=== PATIENT | male | born 1945 | race Caucasian/White ===

== ENCOUNTER 2018-07-11 10:00 | Emergency (ER) | payer OTHER ==
[2018-07-11 10:24] VITALS: BP 95/58; TEMP 96.8; BMI 23.0
--- NOTE | 2018-07-11 10:44 | ED.PDOC ---
General ED Provider: Dr. WAGNER GARCIAS Chief Complaint: Chest Wall Injury/Pain Stated Complaint: CC: Pain in Chest, Rt shoulder, Lt Shoulder, SOB. Lives alone and apparently fell last eveinig landing on Rt side injuring rt rib cage, shoulder (RT) Striking head sustaing superficial laceration mid forehead above rt Eyebrow. Unknown LOC. Found by caregiver to assisted from floor where he was found remotely from site of fall lying on Lt side attempitng to get. Time Seen by Physician: 10:20 Mode of Arrival: Ambulance Information Source: Patient, EMT Exam Limitations: No limitations Primary Care Provider: PATRICIA KIRKLAND Nursing and Triage Documentation Reviewed and Agree: Yes Does patient meet sepsis criteria?: No If yes, has appropriate treatment been initiated?: Yes System Inflammatory Response Syndrome: Not Applicable Sepsis Protocol: For patient's 13 years and over: Temp is 96.8 and below OR 101 and greater Pulse >90 BPM Resp >20/minute Acutely Altered Mental Status Are patient's symptoms suggestive of a new infection, such as: -Pneumonia -Skin, Soft Tissue -Endocarditis -UTI -Bone, Joint Infection -Implantable Device -Acute Abdominal Infection -Wound Infection -Meningitis -Blood Stream Catheter Infection -Unknown Trauma/Injury Complaint Exam - Truncal Trauma Complaint/Exam Location of Pain: Reports: Right, Chest Onset: Last PM Symptoms Are: Worse Onset of Pain: Reports: Immediate Initial Severity: Severe Current Severity: Moderate Mechanism: Reports: Blunt trauma, Direct blow Aggravating: Reports: Movement, Cough Alleviating: Reports: None Associated Signs and Symptoms: Reports: Short of air, Chest pain, Cough Related History: Reports: COPD Vertebral Tenderness Present: No Vertebral Deformity Present: No Trachial Deviation Present: No JVD Present: No Crepitus Present: No Diminished Breath Sounds: Yes Muffled Heart Sounds Present: No Paradoxical Chest Wall Movement Present: No Abdominal Guarding Present: No Abdominal Rigidity Present: No Referred Shoulder Pain (Kehr's Sign) Present: No Skin Findings: Present: Abrasion, Contusion, Hematoma, Laceration (superficial lt arm) Differential Diagnoses: Chest Wall Contusion, Pulmonary Contusion, Rib Fracture , Thoracic Sprain, Thoracic Strain, Lumbar Sprain, Lumbar Strain Review of Systems - Review Of Systems Constitutional: Reports: No symptoms Eyes: Reports: No symptoms Ears, Nose, Mouth, Throat: Reports: No symptoms Respiratory: Reports: Cough, Short of air, Wheezing Cardiac: Reports: No symptoms GI: Reports: No symptoms : Reports: No symptoms Musculoskeletal: Reports: Back pain, Joint pain, Muscle pain, Muscle stiffness, Neck pain Skin: Reports: No symptoms Neurological: Reports: No symptoms Endocrine: Reports: No symptoms Hematologic/Lymphatic: Reports: No symptoms All Other Systems: Reviewed and Negative Past Medical History - Past Medical History Previously Healthy: No Endocrine: Reports: DM 2 Cardiovascular: Reports: CAD, Hypertension Respiratory: Reports: COPD Hematological: Reports: None Gastrointestinal: Reports: None Genitourinary: Reports: None Neuro/Psych: Reports: None Musculoskeletal: Reports: Arthritis, Back Pain Cancer: Reports: None - Surgical History General Surgical History: Reports: CABG - Family History Family History: Reports: Unknown - Social History Smoking Status: Current every day smoker, Heavy tobacco smoker Hx Substance Use: No Alcohol Screening: Heavy - Immunizations Tetanus Shot up to Date: No (unknown) Physical Exam - Physical Exam Appearance: Ill-appearing Ill-appearing: Moderate Pain Distress: Severe Eyes: ECTOR, EOMI, Conjunctiva clear ENT: Ears normal, Nose normal, Oropharynx normal Neck: Supple Respiratory: Breath sounds diminished, Crackles, Rhonchi, Wheezes Cardiovascular: RRR GI/: Soft, Nontender, No masses, Bowel sounds normal Musculoskeletal: Normal strength, ROM intact, No edema, No calf tenderness Skin: Warm, Dry, Normal color Neurological: Sensation intact, Motor intact, Reflexes intact, Cranial nerves intact, Alert, Oriented Psychiatric: Affect appropriate Critical Care Note - Critical Care Note Total Time (mins): 60 Course - Course Hematology/Chemistry: 07/11/18 11:45 07/11/18 11:45 Orders, Labs, Meds: Lab Review 07/11/18 07/11/18 07/11/18 10:59 11:45 11:45 WBC 9.75 RBC 3.29 L Hgb 10.8 L Hct 30.8 L MCV 93.6 MCH 32.8 H MCHC 35.1 RDW Coeff of Levar 13.4 Plt Count 185 Immature Gran % (Auto) 0.4 Neut % (Auto) 78.6 Lymph % (Auto) 10.8 Luce % (Auto) 9.3 Eos % (Auto) 0.8 Baso % (Auto) 0.1 Immature Gran # (Auto) 0.0 Neut # (Auto) 7.7 H Lymph # (Auto) 1.1 Luce # (Auto) 0.9 Eos # (Auto) 0.1 Baso # (Auto) 0.0 Puncture Site Lrad O2 Saturation 92.0 L ABG pH 7.412 ABG pCO2 29.2 L ABG pO2 61.0 L ABG HCO3 18.6 L ABG Total CO2 20 L ABG Base Excess -6 L [place] Test + FiO2 % 21.0 Sodium 137.4 Potassium 4.19 Chloride 106.1 Carbon Dioxide 21.1 L Anion Gap 14.39 BUN 35.4 H Creatinine 1.24 H Estimated GFR (MDRD) 57.00 BUN/Creatinine Ratio 28.54 Glucose 157.1 H Calcium 8.78 Total Bilirubin 0.78 AST 26.2 ALT 26.1 Alkaline Phosphatase 79.6 Total Protein 6.53 Albumin 3.74 Globulin 2.79 Albumin/Globulin Ratio 1.34 Orders Category Date Time Status ABG DRAW REQUEST Stat CARDIO 07/11/18 10:59 Completed EKG-(ED ONLY) Stat CARDIO 07/11/18 11:03 Ordered ABG Stat LAB 07/11/18 10:59 Completed CBC W/ AUTO DIFF Stat LAB 07/11/18 11:45 Completed CMP [COMPREHENSIVE METABOLIC PANEL] Stat LAB 07/11/18 11:45 Completed Hydromorphone HCl [Dilaudid 1 mg/ml Syringe] MEDS 07/11/18 13:10 Discontinued 1 mg IVP ONCE STA Sodium Chloride 0.9% [Sodium Chloride] 1,000 ml MEDS 07/11/18 13:[address] CHEST W/O CONTRAST Stat RADS 07/11/18 11:[address] HEAD W/O CONTRAST Stat RADS 07/11/18 11:[address] LUMBAR SPINE W/O CONTRAST Stat RADS 07/11/18 11:[address] PELVIS W/O CONTRAST Stat RADS 07/11/18 11:[address] THORACIC SPINE W/O CONTRAST Stat RADS 07/11/18 11:08 Completed SHOULDER, LEFT MIN 2V Stat RADS 07/11/18 11:09 Completed SHOULDER, RIGHT MIN 2V Stat RADS 07/11/18 11:05 Completed Medications Generic Name Dose Route Start Last Admin Trade Name Freq PRN Reason Stop Dose Admin Sodium Chloride 1,000 mls @ 500 mls/hr 07/11/18 13:09 07/11/18 13:16 Sodium Chloride IV 07/11/18 15:08 500 mls/hr BOLUS STA Administration Discontinued Medications Generic Name Dose Route Start Last Admin Trade Name Janet PRN Reason Stop Dose Admin Hydromorphone HCl 1 mg 07/11/18 13:10 07/11/18 13:16 Dilaudid 1 Mg/Ml Syringe IVP 07/11/18 13:11 1 mg ONCE STA Administration Vital Signs: Temp Pulse Resp BP Pulse Ox 07/11/18 10:03 96.8 F L 84 22 95/58 L 91 L Departure - Departure Time of Disposition: 13:15 Disposition: TSF SHORT-TRM HOSP Discharge Problem: Pneumothorax on right, Multiple fractures of ribs, right side, initial encounter for closed fracture, Thoracic vertebral fracture, Fracture of lumbar spine without spinal cord lesion Instructions: Traumatic Pneumothorax (ED), Thoracolumbar Fracture (ED) Condition: Good Pt referred to PMD for follow-up: No IPMP verified?: No Allergies/Adverse Reactions: Allergies No Known Allergies Allergy (Verified 03/06/16 20:48) Home Medications: Ambulatory Orders Aspirin [Aspirin Chewable] 81 mg PO DAILYWM 08/26/13 Atorvastatin Calcium [Lipitor] 40 mg PO DAILY 08/26/13 Prasugrel HCl [Effient] 10 mg PO DAILY 08/26/13 Budesonide/Formoterol Fumarate [Symbicort 160-4.5 Mcg Inhaler] 2 puff PO BID Finasteride [Proscar] 5 mg PO DAILY 11/12/15 Insulin Glargine,Hum.rec.anlog [Lantus Solostar] 45 unit SQ BEDTIME 11/12/15 Insulin Lispro [Humalog Kwikpen] 0 - 20 unit SQ TIDWM 11/12/15 Carvedilol [Coreg] 12.5 mg PO BID 03/06/16 Furosemide [Lasix] 40 mg PO DAILY 03/06/16 Furosemide [Lasix] 80 mg PO DAILY 03/06/16 Trazodone HCl 75 mg PO BEDTIME 03/06/16 Allopurinol 100 mg PO BID 07/11/18 Ferrous Sulfate 325 mg PO DAILY 07/11/18 Isosorbide Mononitrate [Imdur] 15 mg PO DAILY 07/11/18 Megestrol Acetate 20 mg PO DAILY 07/11/18 Mexiletine HCl [Mexitil] 150 mg PO Q8H 07/11/18 Pantoprazole Sodium 40 mg PO DAILY 07/11/18 Spironolactone 25 mg PO DAILY 07/11/18 Transfer Form Completed: Yes Disposition Discussed With: Patient, Family ED Physician Progress Note ED Physician Progress Note: [] 07/11/18 12:12PM -Spoke with Call Center at [facility]' Spoke with Neurosurg Dr Lee, Dr Medina Gen Surgery and Dr Sinha Hospitalized. Gen Surg advised to transfer to [facility] ER for eval and hospitalist agrees to accept for admission . 07/11/18 13:49 Spoke with patient regarding findings and need to Transfer to [place] [id number]
--- NOTE | 2018-07-11 11:39 | CT ---
EXAM: CT of the head without contrast. HISTORY: Chest trauma, fall. COMPARISON: 03/06/2016. TECHNIQUE: Noncontrast CT of the head. FINDINGS: No intracranial hemorrhage or mass effect is identified. There is mild prominence of the sulci. The ventricles are normal in size and configuration. No mccallum white matter differentiation loss is seen to suggest an acute infarct. Intracranial calcified atherosclerotic plaque is seen. The calvarium is intact. There is minimal right maxillary sinus mucosal thickening. IMPRESSION: No evidence of an acute intracranial process. Mild atrophy. Minimal right maxillary chronic sinusitis.
--- NOTE | 2018-07-11 11:54 | DI ---
Exam: Three views of the right shoulder. Comparison: None available. Reason for exam: Fall with arm pain. FINDINGS: No acute fracture or dislocation. The humeral head articulates with the bony glenoid. Th e clavicle appears intact. Moderate degenerative disease. Impression: No acute fracture or dislocation is seen in the right shoulder.
--- NOTE | 2018-07-11 11:56 | DI ---
Exam: Three views of the left shoulder. Comparison: None available. Reason for exam: Pain after fall. FINDINGS: No acute fracture or dislocation. The joint spaces appear well maintained. There is mild degenerative disease. The clavicle appears intact. Impression: No acute fracture or dislocation in the left shoulder.
--- NOTE | 2018-07-11 12:04 | CT ---
EXAM: Noncontrast CT of the chest HISTORY: Fall, rib pain, chest congestion COMPARISON: 03/06/2016 TECHNIQUE: Axial noncontrast CT of the chest with sagittal and coronal reformats FINDINGS: There is a right pneumothorax with up to 4.1 cm of pleural separation at the costophrenic angle. A sm all right pleural effusion is seen. Streak artifacts limit accurate measurement of the density of th is effusion. There is mild right lower lobe atelectasis or consolidation. A stable 3 mm left lower lo be pulmonary nodule is identified. There are mild emphysematous changes. Heart size is normal. The aorta is normal in caliber. Atherosclerotic calcifications including kimmy nary arteries are seen. Operative changes of CABG are identified. No mediastinal lymphadenopathy is seen. Calcified mediastinal and right hilar lymph nodes are seen. A stable sub-centimeter right hepatic lobe hypodensity is seen. A stable 2.2 cm right renal lesion is seen measuring 41 HU. There is mild bilateral perinephric fat stranding, similar to the prior exam. The gallbladder has been removed. There is nondisplaced fracture of the right seventh posterior rib, nondisplaced fracture of the right eighth posterior rib, mildly displaced fracture of the right ninth posterolateral rib, mildly displa ravi fracture of the 10th posterior rib, and minimal displaced fracture of the right 11th posterior ri b. The age indeterminate fracture of the right sixth seventh and eighth anterolateral ribs. Please se e thoracic spine CT report for thoracic spine findings. IMPRESSION: Right pneumothorax with 4.1 cm of pleural separation. Small right pleural effusion. Mild right lower lobe atelectasis or contusion. Fracture of the right 7th through 11th posterior ribs. Age indeterminate fracture of the right sixth , seventh and eighth anterolateral ribs. Atherosclerosis including coronary arteries. Findings were discussed with Dr. Garsia at 1158 hours on 07/11/18.
--- NOTE | 2018-07-11 12:11 | CT ---
EXAM: Noncontrast CT of the thoracic spine HISTORY: Fall, pain COMPARISON: 03/06/2016 TECHNIQUE: Axial CT of the thoracic spine with sagittal and coronal reformats FINDINGS: The thoracic vertebral bodies are normal in height. There is unchanged segmentation of the bridging a nterior osteophyte T7-T8. There is however now fracture of the junction of this anterior osteophyte a nd a right lateral marginal osteophyte with extension into the anterior right aspect of the T8 verteb ral body in this region. There is no vertebral body height loss. No other fracture is seen. No list hesis is identified. Multilevel anterior osteophyte formation is seen. Please see chest CT report for chest findings. IMPRESSION: Acute fracture at the base of an anterior/right lateral marginal osteophyte, extending into the anter ior superior aspect of the T8 vertebral body. No vertebral body height loss identified. Multilevel degenerative disc disease. Please see chest CT report for chest findings.
--- NOTE | 2018-07-11 12:16 | CT ---
EXAM: Noncontrast CT of the lumbar spine HISTORY: Fall, pain COMPARISON: 03/06/2016 TECHNIQUE: Axial noncontrast CT of the lumbar spine with sagittal and coronal reformats FINDINGS: There is nondisplaced fracture of the right transverse process of L3. There is remote fracture of th e right as process of L2. The lumbar vertebral bodies are normal in height. No other lumbar spine fr actures are seen. There is 1 mm of posterior listhesis at L2-3 and L4-5. 2 mm of posterior listhesi s is seen at L5-S1. Extensive atherosclerotic calcifications are seen. There is a stable right leny l lesion. Mild multilevel disc height loss is seen with anterior osteophyte formation. Mild multile jane facet arthropathy. Please see chest CT report for chest findings. IMPRESSION: Acute nondisplaced fracture of the right transverse process of L3. No other evidence of acute osseous injury to the lumbar spine. Multilevel degenerative disc disease and facet arthropathy.
--- NOTE | 2018-07-11 12:20 | CT ---
EXAM: Noncontrast CT of the pelvis HISTORY: Fall, pain COMPARISON: 03/06/2016 CT TECHNIQUE: Axial CT of the pelvis with sagittal coronal reformats. FINDINGS: There is an acute nondisplaced fracture of the right transverse process of L3. No pelvic or hip fract ure is seen. There are mild degenerative changes of the hips. Extensive atherosclerotic calcificati ons are present. A partially visualized lipoma is seen near the left femoral vessels. There is right posterolateral flank subcutaneous fat stranding. IMPRESSION: No acute osseous abnormality of the pelvis or hips. Nondisplaced fracture of the right transverse process of L3. Probable right posterolateral flank contusion.
[2018-07-11] MEDS ORDERED: SODIUM CHLORIDE 1,000 ML IV STA (13:09)
[2018-07-11] MEDS ORDERED: DILAUDID 1 MG/ML SYRINGE IVP STA (13:10)
== END 2018-07-11 13:42 | disposition short-term general hospital (02) ==
LOC: ED 10:00
DX: S22.41XA Multiple fractures of ribs, right side, initial encounter for closed fracture (principal); S27.0XXA Traumatic pneumothorax, initial encounter; S32.039A Unspecified fracture of third lumbar vertebra, initial encounter for closed fracture; S22.069A Unspecified fracture of T7-T8 vertebra, initial encounter for closed fracture; S09.90XA Unspecified injury of head, initial encounter; M25.512 Pain in left shoulder; M25.511 Pain in right shoulder; S41.112A Laceration without foreign body of left upper arm, initial encounter; S01.81XA Laceration without foreign body of other part of head, initial encounter; W19.XXXA Unspecified fall, initial encounter; R06.02 Shortness of breath; I10 Essential (primary) hypertension; I25.810 Atherosclerosis of coronary artery bypass graft(s) without angina pectoris; F17.210 Nicotine dependence, cigarettes, uncomplicated; E11.9 Type 2 diabetes mellitus without complications; J44.9 Chronic obstructive pulmonary disease, unspecified; Z79.4 Long term (current) use of insulin; Z79.899 Other long term (current) drug therapy
CPT/HCPCS: 36415; 80053; 82803; 85025; 93005; 93010; 96374; 99285